=== PATIENT | male | born 1985 | race Caucasian/White ===

== ENCOUNTER 2019-11-27 13:12 | Emergency (ER) | payer OTHER, SELFPAY ==
[2019-11-27 13:16] VITALS: BP 141/77; PULSE 85; RESP 16; TEMP 36.9; O2SAT 100
[2019-11-27] MEDS: TET,DIPH,PERTUSS(ACELL),VAC/PF 0.5 ML SYRINGE IM (13:47)
--- NOTE | 2019-11-27 13:52 | PC.NURSE ---
pt reports, cutting meat with knife, while cutting against the bone,knife slipped and obtained 1cm lac left forearm, occured 1300. arrived distal cms intact, full rom, no active bleeding noted, laceration with fat tissue noted.
[2019-11-27 14:56] VITALS: BP 114/62; PULSE 70; RESP 18; O2SAT 99
--- NOTE | 2019-11-27 17:59 | ED_ITS ---
HPI - Wound/Laceration <BRITTANY Pa - Last Filed: 11/27/19 18:11> General Chief Complaint: Wound/Laceration Stated Complaint: cut left arm Time Seen by Provider: 11/27/19 13:41 Source: patient Mode of arrival: Ambulatory Limitations: no limitations History of Present Illness HPI narrative: The patient is a 34-year-old male who accidentally cut himself with a knife while at work today. He does not know when his last tetanus was. He states it is on his left forearm. He states he has full range of motion. He is not worried about retained foreign body or chip fracture and declines x-ray. Related Data Home Medications Medication Instructions Recorded Confirmed No Known Home Medications 06/22/19 11/27/19 Allergies Allergy/AdvReac Type Severity Reaction Status Date / Time No Known Drug Allergies Allergy Verified 11/27/19 13:20 Review of Systems <OLIVERIO Pa - Last Filed: 11/27/19 18:11> Review of Systems Narrative: GENERAL: Denies chills, fatigue, malaise, fever, sweats. HEENT: Denies sinus pain, ear pain, sore throat, difficulty swallowing, dizziness. RESPIRATORY: Denies dyspnea, cough, wheezing, hemoptysis, sputum. CARDIOVASCULAR: Denies chest pain, palpitations, orthopnea, edema, GASTROINTESTINAL: Denies nausea, vomiting, abdominal pain, diarrhea, constipation, melena. : Denies dysuria, frequency, incontinence, hematuria, urinary retention. MUSCULOSKELETAL: denies weakness, joint pain, or bony pain SKIN: See HPI NEUROLOGIC: Denies weakness, headache, numbness, change in speech, confusion, seizures, incoordination. PSYCHIATRIC: No concerning psychosocial issues. 12 point review of systems is negative except for those stated above Patient History <BRITTANY Pa - Last Filed: 11/27/19 18:11> Social History Smoking Status: Current every day smoker Smoking Status: Current every day smoker tobacco type: cigarettes alcohol intake frequency: 0-2 drinks per day Substance Use Type: marijuana Exam <BRITTANY Pa - Last Filed: 11/27/19 18:11> Narrative Exam Narrative: GENERAL: This is a well-nourished, well-developed patient, acute distress HEAD: Atraumatic. Normocephalic. No temporal or scalp tenderness. EYES: Pupils equal round and reactive. Extraocular motions intact. No scleral icterus. No injection or drainage. ENT: Nose without bleeding, purulent drainage or septal hematoma. Throat without erythema, tonsillar hypertrophy or exudate. Uvula midline. Airway patent. NECK: Trachea midline. No JVD or lymphadenopathy. Supple, nontender, no meningeal signs. CARDIOVASCULAR: Regular rate and rhythm RESPIRATORY: No cough. No increased respiratory effort. No accessory muscle use EXTREMITIES: Positive radial pulse right hand. Able to flex and extend right wrist. Able to Pronate supinate right forearm. BACK: Nontender without deformity or crepitance. No flank tenderness. NEURO: AOx3. SKIN: Linear 0.5 cm well-approximated laceration noted on anterior aspect of left forearm no obvious foreign body, muscle or tendon involvement Initial Vital Signs Initial Vital Signs: Vital Signs Temperature 98.5 F 11/27/19 13:16 Pulse Rate 85 11/27/19 13:16 Respiratory Rate 16 11/27/19 13:16 Blood Pressure 141/77 H 11/27/19 13:16 Pulse Oximetry 100 11/27/19 13:16 <Salma Rose DO - Last Filed: 11/28/19 19:21> Initial Vital Signs Initial Vital Signs: Vital Signs Temperature 98.5 F 11/27/19 13:16 Pulse Rate 85 11/27/19 13:16 Respiratory Rate 16 11/27/19 13:16 Blood Pressure 141/77 H 11/27/19 13:16 Pulse Oximetry 100 11/27/19 13:16 Procedures <BRITTANY Pa - Last Filed: 11/27/19 18:11> Laceration Repair Laceration 1: Site: upper extremity Side (If applicable): left Size (cm): 0.5 Description: linear Depth: simple, single layer Pre-repair: wound explored, irrigated extensively and deep structures intact (Cleansed with Hibiclens and soaked with Hibiclens) Skin layer closed with: steri-strips Scores <BRITTANY Pa - Last Filed: 11/27/19 18:11> GCS Reid coma scale eye opening: Spontaneous [place] coma scale verbal response: Orientated Reid coma scale motor response: Obey commands [place] coma scale total score: 15 Course <BRITTANY Pa - Last Filed: 11/27/19 18:11> Orders Ordered: Discontinued Medications Diphtheria/Tetanus/Acell Pertussis (Adacel) 0.5 ml IM .ONCE ONE Stop: 11/27/19 13:25 Last Admin: 11/27/19 13:47 Dose: 0.5 ml Documented by: [email or web address] Vital Signs Vital signs: Vital Signs - 8 hr 11/27/19 13:16 11/27/19 14:56 Temperature 98.5 F Pulse Rate 85 70 Respiratory Rate 16 18 Blood Pressure 141/77 H Blood Pressure [Right Arm] 114/62 Pulse Oximetry 100 99 <Salma Rose DO - Last Filed: 11/28/19 19:21> Orders Ordered: Discontinued Medications Diphtheria/Tetanus/Acell Pertussis (Adacel) 0.5 ml IM .ONCE ONE Stop: 11/27/19 13:25 Last Admin: 11/27/19 13:47 Dose: 0.5 ml Documented by: [email or web address] Vital Signs Vital signs: Vital Signs - 8 hr 11/27/19 13:16 11/27/19 14:56 Temperature 98.5 F Pulse Rate 85 70 Respiratory Rate 16 18 Blood Pressure 141/77 H Blood Pressure [Right Arm] 114/62 Pulse Oximetry 100 99 MDM - Wound/Laceration <BRITTANY Pa - Last Filed: 11/27/19 18:11> MDM Narrative Medical decision making narrative: The patient is a 34-year-old male who prese nts with a chief complaint of laceration. It is small, closed well with Steri- Strips as per procedural note. Cleansed copiously with Hibiclens. Discussed at length monitoring presents infection. Discussed keeping it clean and dry. Patient has no questions or concerns upon discharge and states understanding of return precautions as well as follow-up care. Discharge Plan Departure Patient Disposition: Home Clinical Impression: Laceration Discharge Date/Time: 11/27/19 15:58 Instructions: DI for Laceration Repair Steri-Strips, DI for Minor Laceration Activity Restrictions/Additional Instructions: Please monitor your laceration for signs and symptoms of infection. Please keep the Steri-Strips clean and dry. Please come back to the emergency department for any acute concerns. Prescriptions: No Action No Known Home Medications RF: 0
== END 2019-11-27 15:58 | disposition home or self-care (01) ==
PROVIDERS: Emergency Provider Nurse Practitioner Family
DX: S51.812A Laceration without foreign body of left forearm, initial encounter (principal); W26.0XXA Contact with knife, initial encounter; Y99.0 Civilian activity done for income or pay
CPT/HCPCS: 90471; 99283; 99284; 90715